=== PATIENT | female | born 2000 | race American Indian/Alaskan Native ===

== ENCOUNTER 2021-06-01 05:52 | Emergency (ER) | payer OTHER ==
[2021-06-01] MEDS ORDERED: ACETAMINOPHEN 325 MG TAB PO ONE (06:07)
[2021-06-01 06:30] LABS: Basophils % (Auto) 0.3 % (0.0-1.8); Eosinophils % (Auto) 0.4 % (0.0-4.3); Hemoglobin 12.2 gm/dl (10.1-14.3); Lymphocytes # (Auto) 0.8 K/mm3 (1.2-5.4); Lymphocytes % (Auto) 17.2 % (13.4-35.0); Mean Corpuscular HGB Conc 34 % (30-34); Mean Corpuscular Volume 90 fl (79-97); Monocytes # (Auto) 0.8 K/mm3 (0.0-0.8); Monocytes % (Auto) 15.9 % (0.0-7.3); Platelet Count 273 K/mm3 (140-440); Red Blood Count 4.01 M/mm3 (3.65-5.03); Red Cell Distribution Width 13.5 % (13.2-15.2)
[2021-06-01 06:46] LABS: BUN/Creatinine Ratio 10; Blood Urea Nitrogen 8 mg/dL (7-17); Calcium 8.8 mg/dL (8.4-10.2); Hemolysis Index 9
--- NOTE | 2021-06-01 07:27 | Emergency Department Report ---
ED General Adult HPI - General Chief complaint: Weakness Stated complaint: BODY ACHES Time Seen by Provider: 06/01/21 07:26 Source: patient Mode of arrival: Ambulatory Limitations: No Limitations - History of Present Illness Initial comments: 20-year-old female with no significant past history but she does smoke, Presents to the ER today with complaints of flulike symptoms. Patient states that her symptoms started yesterday. She reports generalized body aches, intermittent mild dry cough, intermittent chills, headache, mild intermittent diffuse abd ominal pain and she states that she had 2 episodes of watery stools yesterday but this has since resolved. She denies any apparent fever at home, she denies any nausea, vomiting, dysuria, urinary frequency, loss of taste or smell. She states that she has been around her brother who is currently sick with loss of taste and smell. She states that he did get his Covid test done yesterday but still waiting on the results. She states that she has not gotten a COVID-19 vaccine and she has not taken a test and she has been sick. Her last menstrual cycle was the beginning of May 2021. Complaint: Body aches -: days(s) (1) Severity scale (0 -10): 8 - Related Data Previous Rx's Medication Instructions Recorded Last Taken Type Ibuprofen [Motrin] 600 mg PO Q8H PRN #30 tablet 06/01/21 Unknown Rx Allergies Allergy/AdvReac Type Severity Reaction Status Date / Time No Known Allergies Allergy Unverified 06/01/21 06:02 ED Review of Systems ROS: Stated complaint: BODY ACHES Other details as noted in HPI Comment: All other systems reviewed and negative Constitutional: chills. denies: diaphoresis, fever, malaise, weakness Eyes: denies: eye pain, eye discharge, vision change ENT: denies: ear pain, throat pain, dental pain, hearing loss, epistaxis, congestion Respiratory: cough. denies: shortness of breath, SOB with exertion, SOB at rest, wheezing Cardiovascular: denies: chest pain, palpitations, dyspnea on exertion, orthopnea, edema, syncope, paroxysmal nocturnal dyspnea Gastrointestinal: abdominal pain, diarrhea. denies: nausea, vomiting, constipation, hematemesis, melena, hematochezia Genitourinary: denies: urgency, dysuria, discharge, abnormal menses, dyspareunia Musculoskeletal: arthralgia, myalgia. denies: back pain, joint swelling Skin: denies: rash, lesions Neurological: headache. denies: weakness, numbness, paresthesias, confusion, abnormal gait, vertigo Psychiatric: denies: anxiety, depression, auditory hallucinations, visual hallucinations, homicidal thoughts, suicidal thoughts Hematological/Lymphatic: denies: easy bleeding, easy bruising, swollen glands ED Past Medical Hx - Past Medical History Previous Medical History?: No - Surgical History Past Surgical History?: No - Medications Home Medications: Home Medications Medication Instructions Recorded Confirmed Last Taken Type Ibuprofen [Motrin] 600 mg PO Q8H PRN #30 tablet 06/01/21 Unknown Rx ED Physical Exam - General Limitations: No Limitations General appearance: alert, in no apparent distress - Head Head exam: Present: atraumatic, normocephalic, normal inspection - Eye Eye exam: Present: normal appearance, PERRL, EOMI Pupils: Present: normal accommodation - ENT ENT exam: Present: normal exam, mucous membranes moist - Neck Neck exam: Present: normal inspection, full ROM. Absent: meningismus - Respiratory Respiratory exam: Present: normal lung sounds bilaterally. Absent: respiratory distress, wheezes, rales, rhonchi - Cardiovascular Cardiovascular Exam: Present: regular rate, normal rhythm, normal heart sounds - GI/Abdominal GI/Abdominal exam: Present: soft. Absent: distended, tenderness, guarding, rebound - Neurological Exam Neurological exam: Present: alert, oriented X3, CN II-XII intact, normal gait - Psychiatric Psychiatric exam: Present: normal affect, normal mood - Skin Skin exam: Present: intact ED Course Vital Signs 06/01/21 06/01/21 06:04 07:54 Temperature 101.9 F H 99.4 F Pulse Rate 110 H 97 H Respiratory 20 16 Rate Blood Pressure 108/63 Blood Pressure 104/59 [Right] O2 Sat by Pulse 97 97 Oximetry ED Medical Decision Making - Lab Data Result diagrams: 06/01/21 06:20 06/01/21 06:20 - Radiology Data Radiology results: report reviewed Patient: SABRINA RODRIGUEZ MR#: [id number] : 2000 Acct:[id number] Age/Sex: 20 / F ADM Date: 06/01/21 Loc: ED Attending Dr: Ordering Physician: MILE HERNANDEZ Date of Service: 06/01/21 Procedure(s): XR chest routine 2V Accession Number(s): [id number] cc: MILE HERNANDEZ Fluoro Time In Minutes: CHEST 2 VIEWS INDICATION: fever/cough. COMPARISON: None FINDINGS: Support devices: None. Heart: Within normal limits. Lungs/pleura: No acute air space or interstitial disease. No pneumothorax. Additional findings: None. IMPRESSION: No acute findings. Signer Name: Roni Loomis Jr, MD Signed: 06/01/2021 9:01 AM Workstation Name: [id number] Transcribed By: TTR Dictated By: RONI LOOMIS JR, MD Electronically Authenticated By: RONI LOOMIS JR, MD Signed Date/Time: 06/01/21900 DD/ 0 TD/TT: - Medical Decision Making 0910: X-ray shows nothing acute. Labs reviewed and unremarkable. Repeat VS shows improvement after Tylenol. Patient currently laying in the bed, resting comfortably and does not appear to be in any acute distress. She is not toxic or ill-appearing. She appears hydrated. Reports some improvement of her symptoms after taking the Tylenol. Discussed lab results with patient. Suspect symptoms are related to viral illness and recommend that she gets an outpatient COVID-19 test. Her history, exam, diagnostic testing and current condition do not demonstrate a n infectious process such as meningitis, severe pneumonia, retropharyngeal abscess, epiglottitis, sepsis or other serious bacterial infection requiring further testing, treatment, consultation or admission at this time. Patient expressed understanding of instructions and agree with plan. Patient s table at time of discharge. Critical care attestation.: If time is entered above; I have spent that time in minutes in the direct care of this critically ill patient, excluding procedure time. ED Disposition Clinical Impression: Viral syndrome Disposition: DC-01 TO HOME OR SELFCARE Is pt being admited?: No Does the pt Need Aspirin: No Condition: Stable Instructions: Viral Illness, Adult Additional Instructions: I recommend that you get an outpatient COVID-19 test today. In the meantime take the ibuprofen as prescribed to help with pain or you can take [id number] Tylenol. You can also take [id number] cough cold medication. Also recommend that you drink lots of fluids and take a multivitamin which includes vitamin C, zinc and vitamin D. Recommend rest and lots of handwashing. Follow-up closely with your primary care doctor. Return to the ER if your symptoms changes or worsens in any way. Prescriptions: Ibuprofen [Motrin] 600 mg PO Q8H PRN #30 tablet PRN Reason: Pain Referrals: ELIZABETH SULLIVAN MD [Staff Physician] - 3-[address] [facility] [Provider Group] - 3-5 Days Forms: Work/School Release Form(ED) Time of Disposition: 09:12
[2021-06-01 07:55] VITALS: BP 104/59
[2021-06-01 08:04] LABS: Bacteria,Urine 1+ /HPF (Negative); Bilirubin,Urine NEG (Negative); Blood,Urine NEG (Negative); Color,Urine Straw (Yellow); Mucus,Urine FEW /HPF; Protein,Urine <15 mg/dL mg/dL (Negative); Urobilinogen,Urine < 2.0 mg/dL (<2.0)
[2021-06-01 08:33] LABS: Alanine Aminotransferase 7 units/L (7-56); Albumin 3.9 g/dL (3.9-5)
[2021-06-01 08:47] LABS: Bilirubin,Direct < 0.2 mg/dL (0-0.2)
--- NOTE | 2021-06-01 09:06 | XRay Report ---
CHEST 2 VIEWS INDICATION: fever/cough. COMPARISON: None FINDINGS: Support devices: None. Heart: Within normal limits. Lungs/pleura: No acute air space or interstitial disease. No pneumothorax. Additional findings: None. IMPRESSION: No acute findings. Signer Name: Roni Loomis Jr, MD Signed: 06/01/2021 9:01 AM Workstation Name: [id number]
== END 2021-06-01 09:20 | disposition home or self-care (01) ==
LOC: ED 05:52
DX: B34.9 Viral infection, unspecified (principal); M79.18 Myalgia, other site; R05 Cough; R51.9 Headache, unspecified; R10.84 Generalized abdominal pain; Z79.899 Other long term (current) drug therapy
CPT/HCPCS: 36415; 71046; 80048; 80076; 81001; 83690; 84703; 85025; 99283